=== PATIENT | male | born 1995 ===

== ENCOUNTER 2024-09-17 18:02 | Inpatient (IN) | payer OTHER ==
[~2024-09-17] VITALS: Ht 177.8 cm; Wt 77.3 kg
[2024-09-17 20:06] LABS: ANION GAP 8 mmol/L (8-16); CALCIUM, TOTAL 9.4 mg/dL (8.8-10.5); CARBON DIOXIDE 31 mmol/L (22-29); CHLORIDE 102 mmol/L (98-107); CREATININE 0.87 mg/dL (0.60-1.30); GLOMERULAR FILTR. RATE CALC > 60 mL/min (>60); GLUCOSE,RANDOM 92 mg/dL (70-110); POTASSIUM 4.6 mmol/L (3.5-5.1); SODIUM SERUM 141 mmol/L (136-145); UREA NITROGEN, BLOOD 17 mg/dL (7-18)
[2024-09-17 20:14] LABS: BASOPHILS % (AUTO) 0.5 % (0.0-2.0); EOSINOPHILS % (AUTO) 1.8 % (1.0-6.0); LYMPHOCYTES # (AUTO) 2.1 K/uL (1.0-4.8); LYMPHOCYTES % (AUTO) 23.3 % (22.0-44.0); MEAN CORPUSCULAR HEMOGLOBIN 29.3 pg (26.0-34.0); MEAN CORPUSCULAR HGB CONC 33.3 G/dL (31.0-37.0); MEAN CORPUSCULAR VOLUME 88 fL (80-100); MONOCYTES # (AUTO) 0.8 K/uL (0.1-1.0); MONOCYTES % (AUTO) 8.6 % (2.0-9.0); NEUTROPHILS % (AUTO) 65.8 % (40.0-70.0); PLATELET COUNT (AUTO) 255 K/uL (150-450); RED BLOOD CELL COUNT(AUTO) 4.78 MIL/uL (4.50-5.90); RED CELL DISTRIBUTION WIDTH 16.5 % (11.5-14.5); WHITE BLOOD COUNT (AUTO) 9.1 K/uL (4.5-11.0)
[2024-09-17] MEDS ORDERED: PYRA500T33 PO (20:21)
[2024-09-17] MEDS ORDERED: HYDR-4527 PO (20:21)
[2024-09-17] MEDS ORDERED: PYRI25TA4 PO (20:21)
[2024-09-17] MEDS ORDERED: ETHA400T25 PO (20:21)
[2024-09-17] MEDS ORDERED: [UNRECOGNIZED DRUG - CODE] PO (20:21)
[2024-09-17] MEDS ORDERED: RIFA300C62 PO (20:21)
[2024-09-17] MEDS ORDERED: BUPR1TAB46 SL (20:21)
[2024-09-17] MEDS ORDERED: [UNRECOGNIZED DRUG - CODE] PO (20:21)
[2024-09-17] MEDS ORDERED: [UNRECOGNIZED DRUG - CODE] PO (20:21)
[2024-09-17] MEDS ORDERED: MELA5TAB40 PO (20:21)
[2024-09-17] MEDS ORDERED: ONDANSETRON HCL 4 MG/2 ML VIAL IVP PRN (20:30)
[2024-09-17] MEDS ORDERED: MAGNESIUM HYDROXIDE SUSPENSION 30 ML UDCUP PO PRN (20:30)
[2024-09-17] MEDS ORDERED: BISACODYL 10 MG RECTAL RECTAL SUPPOSITORY PR PRN (20:30)
[2024-09-17] MEDS ORDERED: PYRI-9 PO (20:41)
[2024-09-17] MEDS ORDERED: ISON300T90 PO (20:41)
[2024-09-18] MEDS: DOCUSATE SODIUM 100 MG CAPSULE PO SCH (01:46)
[2024-09-18] MEDS: HEPARIN SODIUM,PORCINE 5,000 UNITS/ML VIAL SQ SCH (01:46)
[2024-09-18 02:40] VITALS: BP 96/63; PULSE 59; RESP 18; TEMP 98.2; O2SAT 98
[2024-09-18] MEDS ORDERED: SODIUM CHLORIDE 3% 15 ML NEB SOLUTION NEB ONE (05:35)
[2024-09-18 05:40] VITALS: PULSE 65; RESP 18; O2SAT 98
[2024-09-18 05:55] VITALS: PULSE 66; RESP 18; O2SAT 99
[2024-09-18] MEDS: PANTOPRAZOLE SODIUM 40 MG DR TABLET PO SCH (09:00)
[2024-09-18 09:09] VITALS: BP 104/65; PULSE 60; RESP 18; TEMP 98.8; O2SAT 100
[2024-09-18] MEDS ORDERED: [UNRECOGNIZED DRUG - OTHER] PO SCH (13:15)
[2024-09-18 18:04] VITALS: BP 112/62; PULSE 65; RESP 18; TEMP 98; O2SAT 98
[2024-09-18] MEDS: levoFLOXacin 750 MG TABLET PO SCH (19:04)
[2024-09-18 21:30] VITALS: BP 106/65; PULSE 68; RESP 18; TEMP 97.7; O2SAT 98
[2024-09-18] MEDS: ZOLPIDEM TARTRATE 5 MG TABLET PO PRN (21:45)
[2024-09-18] MEDS: ACETAMINOPHEN 325 MG TABLET PO PRN (21:45)
[2024-09-19 05:20] VITALS: BP 111/66; PULSE 71; RESP 18; TEMP 98.6; O2SAT 98
[2024-09-19] MEDS: PYRAZINAMIDE 500 MG TABLET PO SCH (08:46)
[2024-09-19] MEDS: PYRIDOXINE HCL 50 MG TABLET PO SCH (08:46)
[2024-09-19] MEDS: rifAMPin 300 MG CAPSULE PO SCH (08:46)
[2024-09-19] MEDS: ETHAMBUTOL HCL 400 MG TABLET PO SCH (08:46)
[2024-09-19] MEDS ORDERED: [UNRECOGNIZED DRUG - OTHER] PO SCH (09:00)
[2024-09-19] MEDS ORDERED: ISONIAZID 300 MG TABLET PO SCH (09:00)
[2024-09-19 09:17] LABS: ALANINE AMINOTRANSFERASE 18 U/L (12-78); ALBUMIN 3.4 g/dL (3.4-5.0); ALKALINE PHOSPHATASE 80 U/L (46-116); ANION GAP 7 mmol/L (8-16); ASPARTATE AMINOTRANSFERASE 12 U/L (15-37); BILIRUBIN,TOTAL 0.3 mg/dL (0.1-1.0); CALCIUM, TOTAL 9.2 mg/dL (8.8-10.5); CARBON DIOXIDE 27 mmol/L (22-29); CHLORIDE 103 mmol/L (98-107); CREATININE 0.71 mg/dL (0.60-1.30); GLOMERULAR FILTR. RATE CALC > 60 mL/min (>60); GLUCOSE,RANDOM 95 mg/dL (70-110); POTASSIUM 3.7 mmol/L (3.5-5.1); SODIUM SERUM 137 mmol/L (136-145); TOTAL PROTEIN, SERUM 6.9 g/dL (6.4-8.2); UREA NITROGEN, BLOOD 11 mg/dL (7-18)
[2024-09-19 09:25] VITALS: BP 121/77; PULSE 87; RESP 18; TEMP 98.1; O2SAT 100
[2024-09-19 13:25] LABS: MTB PCR w/Rif. Resistance-SPUT NOT DETECTED (Not Detectd)
[2024-09-19 19:18] LABS: MTB PCR w/Rif. Resistance-SPUT NOT DETECTED (Not Detectd)
[2024-09-19 20:36] VITALS: BP 118/81; PULSE 78; RESP 16; TEMP 97.7; O2SAT 99
[2024-09-20 08:00] VITALS: BP 99/68; PULSE 70; RESP 17; TEMP 97.7; O2SAT 99
[2024-09-20] MEDS: TraMADol HCL 50 MG TABLET PO PRN (20:25)
[2024-09-20 20:35] VITALS: BP 125/73; PULSE 89; RESP 16; TEMP 98.1; O2SAT 98
[2024-09-21 04:06] LABS: QUANTIFERON+, Nil Value 2.01 IU/mL; QUANTIFERON+,Mitogen Value >10.00 IU/mL; QUANTIFERON+,TB1 Antigen Value 6.88 IU/mL; QUANTIFERON+,TB2 Antigen Value 8.09 IU/mL; QUANTIFERON, TB GOLD PLUS Positive (Negative)
[2024-09-21 07:00] VITALS: BP 99/60; PULSE 70; RESP 18; TEMP 97.8; O2SAT 98
[2024-09-21 20:15] VITALS: BP 117/67; PULSE 76; RESP 18; TEMP 97.5; O2SAT 98
[2024-09-22 06:10] VITALS: BP 109/60; PULSE 68; RESP 18; TEMP 97.5; O2SAT 98
[2024-09-22 07:51] LABS: ALANINE AMINOTRANSFERASE 22 U/L (12-78); ALBUMIN 3.5 g/dL (3.4-5.0); ALKALINE PHOSPHATASE 83 U/L (46-116); ANION GAP 6 mmol/L (8-16); ASPARTATE AMINOTRANSFERASE 10 U/L (15-37); BILIRUBIN,TOTAL 0.3 mg/dL (0.1-1.0); CALCIUM, TOTAL 9.2 mg/dL (8.8-10.5); CARBON DIOXIDE 31 mmol/L (22-29); CHLORIDE 104 mmol/L (98-107); CREATININE 0.83 mg/dL (0.60-1.30); GLOMERULAR FILTR. RATE CALC > 60 mL/min (>60); GLUCOSE,RANDOM 101 mg/dL (70-110); SODIUM SERUM 141 mmol/L (136-145); TOTAL PROTEIN, SERUM 7.2 g/dL (6.4-8.2); UREA NITROGEN, BLOOD 7 mg/dL (7-18)
[2024-09-22 08:57] VITALS: BP 114/62; PULSE 70; RESP 18; TEMP 97.8; O2SAT 96
[2024-09-22] MEDS ORDERED: ISONIAZID 300 MG TABLET PO SCH (15:15)
[2024-09-22 20:05] VITALS: BP 106/64; PULSE 78; RESP 18; TEMP 98.1; O2SAT 98
[2024-09-23 05:55] VITALS: BP 108/75; PULSE 86; RESP 18; TEMP 97.5; O2SAT 100
[2024-09-23 07:25] VITALS: BP 112/73; PULSE 61; RESP 18; TEMP 97.3; O2SAT 98
[2024-09-23 20:00] VITALS: BP 106/59; PULSE 86; RESP 20; TEMP 97.9; O2SAT 98
[2024-09-24 04:09] VITALS: BP 117/70; PULSE 57; RESP 18; TEMP 98.2; O2SAT 99
[2024-09-24 08:10] VITALS: BP 109/72; PULSE 71; RESP 18; TEMP 97.9; O2SAT 98
[2024-09-24 19:24] VITALS: BP 104/65; PULSE 76; RESP 18; TEMP 97.9; O2SAT 98
[2024-09-25 04:51] VITALS: BP 99/62; PULSE 71; RESP 17; TEMP 97.9; O2SAT 100
[2024-09-25 07:46] VITALS: BP 113/65; PULSE 75; RESP 18; TEMP 97.5; O2SAT 97
[2024-09-25] MEDS ORDERED: PANT-31 PO (15:15)
[2024-09-25] MEDS ORDERED: ACET-2247 PO (15:16)
[2024-09-25] MEDS ORDERED: LEVO750T68 PO (15:17)
== END 2024-09-25 17:07 | DRG 178 ==
LOC: EMS 18:02 → EDH 09-18 00:28 → 6S 09-18 01:57
PROVIDERS: ADMIT Internal Medicine; ATTEND Internal Medicine
DX: A15.0 Tuberculosis of lung (principal); F11.20 Opioid dependence, uncomplicated; F43.20 Adjustment disorder, unspecified; F41.9 Anxiety disorder, unspecified; J98.4 Other disorders of lung; M54.9 Dorsalgia, unspecified; Z76.5 Malingerer [conscious simulation]; Z79.899 Other long term (current) drug therapy; Z78.9 Other specified health status
CPT/HCPCS: 71045; 71250; 80048; 80053; 85025; 86480; 87015; 87206; 87389; 87556; 93005; 94640; 99285; J1644; 36415-L1; 36415-TC